=== PATIENT | male | born 1985 | race African-American/Black ===

== ENCOUNTER → 2017-05-01 10:11 | Outpatient (CLI) | payer OTHER ==
[2014-12-05 08:34] VITALS: BMI 26.0
[~2017-05-01 10:11] MED LIST: ATRIPLA TABLET1 TAB PO; HYDROCODONE-APA1 TAB PO; LEVAQUIN500 MG PO; PERCOCET 10/3251 TA1 PO
== END | disposition home or self-care (01) ==
LOC: D.LABREF 10:11
DX: R09.81 Nasal congestion (principal)